=== PATIENT | male | born 1980 | race Caucasian/White ===

== ENCOUNTER 2018-08-29 01:21 | Emergency (ER) | payer SELFPAY ==
[~2018-08-29] VITALS: Ht 175.3 cm; Wt 99.8 kg
[2018-08-29] MEDS ORDERED: ANTACID SUSP 30 ML UDC (MYLANTA) PO ONE (02:00)
[2018-08-29] MEDS ORDERED: LIDOCAINE 2% VISCOUS 15 ML UDC PO ONE (02:00)
[2018-08-29] MEDS ORDERED: ONDANSETRON 4 MG/2 ML (SDV) Z0FRAN IVP ONE (02:00)
[2018-08-29 02:04] LABS: BILIRUBIN,URINE NEGATIVE (NEGATIVE); CLARITY,URINE VERY CLOUDY; COLOR,URINE YELLOW; GLUCOSE, URINE (UA) NEGATIVE (NEGATIVE); KETONES,URINE NEGATIVE (NEGATIVE); LEUKOCYTE ESTERASE ,URINE NEGATIVE (NEGATIVE); NITRITE,URINE NEGATIVE (NEGATIVE); PH,URINE 8 (5-9); PROTEIN,URINE NEGATIVE (NEGATIVE); UROBILINOGEN,URINE NORMAL (NORMAL)
[2018-08-29 02:04] LABS: BASOPHILS % (AUTO) 1 % (0-10); EOSINOPHILS # (AUTO) 0.1 10^3/uL (0.0-0.3); EOSINOPHILS % (AUTO) 1 % (0-10); HEMATOCRIT 44 % (40-54); LYMPHOCYTES # (AUTO) 2.2 X 10^3 (1.0-4.0); LYMPHOCYTES % (AUTO) 27 % (12-44); MEAN CORPUSCULAR HEMOGLOBIN 30 PG (25-34); MEAN CORPUSCULAR HGB CONC 34 G/DL (32-36); MEAN CORPUSCULAR VOLUME 86 FL (80-99); MEAN PLATELET VOLUME 10.7 FL (7.4-10.4); MONOCYTES # (AUTO) 0.6 X 10^3 (0.0-1.0); MONOCYTES % (AUTO) 8 % (0-12); NEUTROPHILS # (AUTO) 5.2 X 10^3 (1.8-7.8); NEUTROPHILS % (AUTO) 64 % (42-75); PLATELET COUNT 247 10^3/uL (130-400); RED BLOOD COUNT 5.09 10^6/uL (4.35-5.85); RED CELL DISTRIBUTION WIDTH 13.3 % (10.0-14.5); WHITE BLOOD COUNT 8.1 10^3/uL (4.3-11.0)
[2018-08-29 02:13] LABS: AMORPHOUS SEDIMENT,UR LARGE AMOR PHOSPHATE /LPF; BACTERIA,URINE NEGATIVE /HPF
[2018-08-29 02:18] LABS: ALANINE AMINOTRANSFERASE 30 U/L (0-55); ALBUMIN 4.4 GM/DL (3.2-4.5); ALKALINE PHOSPHATASE 57 U/L (40-136); BILIRUBIN,TOTAL 0.4 MG/DL (0.1-1.0); BUN/CREATININE RATIO 11; CALCIUM 9.7 MG/DL (8.5-10.1); CARBON DIOXIDE 27 MMOL/L (21-32); CHLORIDE 104 MMOL/L (98-107); CREATININE SERUM 1.28 MG/DL (0.60-1.30); GFR ESTIMATED > 60; GLUCOSE 73 MG/DL (70-105); LIPASE 39 U/L (8-78); MAGNESIUM 2.4 MG/DL (1.8-2.4); POTASSIUM 3.9 MMOL/L (3.6-5.0); SODIUM 140 MMOL/L (135-145); TOTAL PROTEIN 7.6 GM/DL (6.4-8.2)
[2018-08-29] MEDS ORDERED: ONDA4TAB11 SL (03:05)
--- NOTE | 2018-08-29 03:05 | ED Abdominal Pain ---
General Chief Complaint: Abdominal/GI Problems Stated Complaint: ABD PAIN Nursing Triage Note: Pt arrived by private vehicle with cc of abdominal pain. Pt was alert, oriented and ambulatory at arrival. Pt stated pain started around [id number]. Pt stated pain is uncomfortable, dull and can get sharp when it intensifies. Pt stated pain is about a 4/5 in middle upper abdomen. Pt stated he does not have heartburn, flank pain or problems urinating. Pt stated he had normal bowel movement yesterday. Sepsis Screen: No Definite Risk Source of Information: Patient Exam Limitations: No Limitations Allergies and Home Medications Allergies Coded Allergies: No Known Drug Allergies (Unverified , 08/29/18) Past Yqbbmns-Jbfkml-Ymhejg Hx Patient Social History Alcohol Use: Denies Use Recreational Drug Use: No Smoking Status: Never a Smoker 2nd Hand Smoke Exposure: No Recent Foreign Travel: No Contact w/Someone Who Travel: No Recent Infectious Disease Expo: No Recent Hopitalizations: No Physical Abuse: No Sexual Abuse: No Mistreated: No Fear: No Seasonal Allergies Seasonal Allergies: No Past Medical History Surgeries: No Respiratory: No Cardiac: No Neurological: No Genitourinary: No Gastrointestinal: No Musculoskeletal: No Endocrine: No HEENT: No Cancer: No Psychosocial: No Integumentary: No Blood Disorders: No Physical Exam Vital Signs Vital Signs - First Documented 08/29/18 01:30 Temp 98.3 Pulse 83 Resp 20 B/P (MAP) 147/88 (107) Pulse Ox 98 O2 Delivery Room Air Capillary Refill : Less Than 3 Seconds Height/Weight/BMI Height: 5'9.00" Weight: 220lbs. 0oz. 99.257344tw; BMI Method:Stated Progress/Results/Core Measures Results/Orders Lab Results Laboratory Tests Test 08/29/18 01:28 08/29/18 01:34 Range/Units Urine Color YELLOW Urine Clarity VERY CLOUDY H Urine pH 8 5-9 Urine Specific [place] 1.015 L 1.016-1.022 Urine Protein NEGATIVE NEGATIVE Urine Glucose (UA) NEGATIVE NEGATIVE Urine Ketones NEGATIVE NEGATIVE Urine Nitrite NEGATIVE NEGATIVE Urine Bilirubin NEGATIVE NEGATIVE Urine Urobilinogen NORMAL NORMAL MG/DL Urine Leukocyte Esterase NEGATIVE NEGATIVE Urine RBC (Auto) NEGATIVE NEGATIVE Urine RBC NONE /HPF Urine WBC NONE /HPF Urine Crystals PRESENT H /LPF Urine Amorphous Sediment LARGE BERNABE PHOSPHATE H /LPF Urine Bacteria NEGATIVE /HPF Urine Casts NONE /LPF Urine Mucus NEGATIVE /LPF Urine Culture Indicated NO White Blood Count 8.1 4.3-11.0 10^3/uL Red Blood Count 5.09 4.35-5.85 10^6/uL Hemoglobin 15.0 13.3-17.7 G/DL Hematocrit 44 40-54 % Mean Corpuscular Volume 86 80-99 FL Mean Corpuscular Hemoglobin 30 25-34 PG Mean Corpuscular Hemoglobin Concent 34 32-36 G/DL Red Cell Distribution Width 13.3 10.0-14.5 % Platelet Count 247 130-400 10^3/uL Mean Platelet Volume 10.7 H 7.4-10.4 FL Neutrophils (%) (Auto) 64 42-75 % Lymphocytes (%) (Auto) 27 12-44 % Monocytes (%) (Auto) 8 0-12 % Eosinophils (%) (Auto) 1 0-10 % Basophils (%) (Auto) 1 0-10 % Neutrophils # (Auto) 5.2 1.8-7.8 X 10^3 Lymphocytes # (Auto) 2.2 1.0-4.0 X 10^3 Monocytes # (Auto) 0.6 0.0-1.0 X 10^3 Eosinophils # (Auto) 0.1 0.0-0.3 10^3/uL Basophils # (Auto) 0.0 0.0-0.1 10^3/uL Sodium Level 140 135-145 MMOL/L Potassium Level 3.9 3.6-5.0 MMOL/L Chloride Level 104 98-107 MMOL/L Carbon Dioxide Level 27 21-32 MMOL/L Anion Gap 9 5-14 MMOL/L Blood Urea Nitrogen 14 7-18 MG/DL Creatinine 1.28 0.60-1.30 MG/DL Estimat Glomerular Filtration Rate > 60 BUN/Creatinine Ratio 11 Glucose Level 73 70-105 MG/DL Calcium Level 9.7 8.5-10.1 MG/DL Corrected Calcium 9.4 8.5-10.1 MG/DL Magnesium Level 2.4 1.8-2.4 MG/DL Total Bilirubin 0.4 0.1-1.0 MG/DL Aspartate Amino Transf (AST/SGOT) 25 5-34 U/L Alanine Aminotransferase (ALT/SGPT) 30 0-55 U/L Alkaline Phosphatase 57 40-136 U/L Total Protein 7.6 6.4-8.2 GM/DL Albumin 4.4 3.2-4.5 GM/DL Lipase 39 8-78 U/L My Orders Orders - NELI MAYS MD Cbc With Automated Diff (08/29/18 01:57) Comprehensive Metabolic Panel (08/29/18 01:57) Lipase (08/29/18 01:57) Magnesium (08/29/18 01:57) Ua Culture If Indicated (08/29/18 01:57) Ondansetron Injection (Zofran Injectio (08/29/18 02:00) Lidocaine 2% Viscous 15 Ml (Xylocaine Vi (08/29/18 02:00) Antacid Suspension (Mylanta Suspension (08/29/18 02:00) Medications Given in ED Current Medications Medications Dose Ordered Sig/[place] Route Start Time Stop Time Status Last Admin Dose Admin Al Hydrox/Mg Hydrox/Simethicone 30 ml ONCE ONCE PO 08/29/18 02:00 08/29/18 02:01 DC 08/29/18 02:11 30 ML Lidocaine HCl 15 ml ONCE ONCE PO 08/29/18 02:00 08/29/18 02:01 DC 08/29/18 02:11 15 ML Ondansetron HCl 8 mg ONCE ONCE IVP 08/29/18 02:00 08/29/18 02:01 DC 08/29/18 02:10 8 MG Vital Signs/I&O 08/29/18 01:30 Temp 98.3 Pulse 83 Resp 20 B/P (MAP) 147/88 (107) Pulse Ox 98 O2 Delivery Room Air Blood Pressure Mean: 107 Departure Impression Primary Impression: Right upper quadrant pain Additional Impression: Nausea Disposition: 01 HOME, SELF-CARE Condition: Improved Departure-Patient Inst. Decision time for Depature: 03:02 Referrals: MIRANDA JHAVERI MD (PCP/Family) Primary Care Physician Patient Instructions: Acute Abdomen (Belly Pain), Adult (DC) Add. Discharge Instructions: Start with a clear liquid diet and gradually advance your diet with small quantities of bland food as tolerated. Eat a very low-fat diet. Fats include greases and oils such as oils in dressing and cooking oil. Use Zofran (ondansetron) as prescribed for nausea and vomiting. For pain, you may try Tylenol (acetaminophen) up to 1000 mg every 6 hours as needed and/or ibuprofen up to 600 mg every 6 hours as needed. Call the phone number highlighted on the ultrasound order form to schedule your gallbladder ultrasound. Please keep in mind you'll need to have nothing to eat or drink for at least 6 hours prior to the study. Also, please note be asked to obtain a prior authorization from your primary care office before obtaining the ultrasound. Return to the emergency room if you have worsening symptoms. All discharge instructions reviewed with patient and/or family. Voiced understanding. Scripts Ondansetron (Ondansetron Odt) 4 Mg Tab.rapdis 4 MG SL Q4H PRN for NAUSEA/VOMITING, #10 TAB Prov: NELI MAYS MD 08/29/18 NELI MAYS MD Aug 29, 2018 03:05
[2018-08-29 03:11] VITALS: BP 125/81
== END 2018-08-29 03:11 | disposition home or self-care (01) ==
LOC: EDUNIT# 01:21 → ER 01:24
DX: R10.11 Right upper quadrant pain (principal); R11.0 Nausea
CPT/HCPCS: 36415; 80053; 81000; 83690; 83735; 85025

== ENCOUNTER → 2018-08-30 | Outpatient (CLI) | payer OTHER ==
[~2018-08-30] MED LIST: ONDA4TAB11 SL
--- NOTE | 2018-08-30 09:30 | Diagnostic Imaging Report ---
PROCEDURE: US Gallbladder. TECHNIQUE: Multiple real-time grayscale images were obtained over the right upper quadrant in various projections. INDICATION: Right upper quadrant pain. The liver is normal in size at 15.7 cm. No discrete liver mass is identified. The portal vein is patent and shows normal direction of flow. Gallbladder is without stones or sludge. No wall thickening or biliary ductal dilatation is seen. Pancreas and right kidney are unremarkable. There is no ascites. IMPRESSION: Unremarkable gallbladder ultrasound. Dictated by: Dictated on workstation # [id number]
== END ==
LOC: RAD 08:16
PROVIDERS: ATTEND Family Medicine
DX: R10.11 Right upper quadrant pain (principal)
CPT/HCPCS: 76705

== ENCOUNTER → 2022-01-25 | Outpatient (CLI) | payer SELFPAY ==
--- NOTE | 2022-01-25 13:29 | Diagnostic Imaging Report ---
INDICATION: Chronic right knee pain. TIME OF EXAM: 1:09 PM. FINDINGS: Three views of the right knee were obtained. The alignment is normal. There is mild medial and patellofemoral compartmental degenerative change. No fracture, dislocation, or effusion is seen. IMPRESSION: Mild degenerative changes. No acute bony abnormality is detected. Dictated by: Dictated on workstation # [id number]
== END ==
LOC: RAD 12:32
PROVIDERS: ATTEND Family Medicine
DX: M17.11 Unilateral primary osteoarthritis, right knee (principal)
CPT/HCPCS: 73562